=== PATIENT | male | born 1960 | race Caucasian/White ===

== ENCOUNTER → 2018-11-16 13:37 | Outpatient (CLI) | payer OTHER, SELFPAY ==
--- NOTE | 2018-11-16 13:41 | DI.RAD.S_ITS ---
PROCEDURE: XR SHOULDER LT MIN 2V INDICATIONS: neck pain, left sided shoulder pain TECHNIQUE: 3 views of the shoulder were acquired. COMPARISON: None. FINDINGS: Bones: No fractures or dislocations. No suspicious bony lesions. Visualized ribs appear intact. Soft tissues: No suspicious soft tissue calcifications. IMPRESSION: Normal for age, source of current neck and left shoulder pain symptoms is not seen. Dictated by: Adelfo Morillo M.D. on 11/16/2018 at 14:44 Approved by: Adelfo Morillo M.D. on 11/16/2018 at 14:44
--- NOTE | 2018-11-16 13:41 | DI.RAD.S_ITS ---
PROCEDURE: XR CERVICAL SPINE 2V OR 3V INDICATIONS: neck pain, left sided shoulder pain TECHNIQUE: 3 view(s) of the cervical spine were acquired. COMPARISON: None. FINDINGS: Bones: No fractures or dislocations to the T1 level. The lateral masses of C1 appear intact on the odontoid view. No suspicious bony lesions. Moderately severe C5-6 degenerative disc disease with anterior and posterior projecting osteophytes is is present. No trauma found.. Soft tissues: No prevertebral soft tissue swelling. IMPRESSION: Moderately severe C5-6 degenerative disc disease but only minimal degeneration above and below is present. Spinal and foraminal stenosis at C5-6 likely is present. Dictated by: Adelfo Morillo M.D. on 11/16/2018 at 14:43 Approved by: Adelfo Morillo M.D. on 11/16/2018 at 14:44
== END ==
PROVIDERS: PCP Family Medicine; Visit Provider Family Medicine
DX: M50.322 Other cervical disc degeneration at C5-C6 level (principal); M25.512 Pain in left shoulder
CPT/HCPCS: 72040; 73030

== ENCOUNTER → 2023-07-22 14:21 | Outpatient (CLI) | payer OTHER, SELFPAY ==
--- NOTE | 2023-07-22 14:30 | DI.MRI.S_ITS ---
PROCEDURE: MR FOOT RT WO/W CON INDICATIONS: Other specified soft tissue disorders TECHNIQUE: Noncontrast coronal T1 spin echo and STIR, sagittal T1 spin echo with fat saturation and STIR, axial T1 spin echo and T2 fast spin echo with fat saturation. After the administration of contrast, axial/sagittal/coronal T1 spin echo with fat saturation through the right foot. COMPARISON: None. FINDINGS: Image quality: Excellent. Bones: Fiducial marker is placed over plantar and lateral aspect of midfoot at the level of cuboid. Mild to moderate midfoot and forefoot joint osteoarthritic changes are seen with joint space narrowing and subchondral sclerosis most notably involving 1st MTP joint and articulation between 1st metatarsal head and sesamoids. No acute fracture or dislocation. No abnormal intraosseous enhancement. No metatarsal stress fractures. Soft tissues: Lobulated fairly homogeneously T1 hypointense and T2 hyperintense structure is noted in subcutaneous soft tissue over plantar and lateral aspect of cuboid and 5th TMT joint measures up to 2.9 x 4.8 x 2.4 cm in size series 11, image 29 and series 7, image 44. Mild peripheral contrast enhancement is noted. No other area of signal abnormality or enhancing mass is seen in midfoot and forefoot soft tissue. The scanned muscles demonstrate normal overall bulk and internal signal. IMPRESSION: 1. Lobulated and fairly homogeneously T1 hypointense and T2 hyperintense structure within soft tissue over plantar and lateral aspect of midfoot at the level of cuboid and 5th TMT joint measures up to 2.9 x 4.8 x 2.4 cm in size. Thin peripheral capsule with capsular enhancement is noted. No internal enhancement. Finding likely represent a large ganglion cyst in this area suggest clinical correlation and follow-up. 2. No enhancing soft tissue mass. No other fluid collection or cystic lesion. 3. No suspicious bony lesions or abnormal intraosseous enhancement. Right foot osteoarthritis as above. No acute fracture or dislocation. Dictated by: Leonel Conley M.D. on 07/24/2023 at 11:59 Approved by: Leonel Conley M.D. on 07/24/2023 at 12:04
== END ==
PROVIDERS: PCP Family Medicine; Referring Provider Podiatrist; Visit Provider Podiatrist
DX: M79.89 Other specified soft tissue disorders (principal)
CPT/HCPCS: 73720; A9579